=== PATIENT | female | born 1975 | race African-American/Black ===

== ENCOUNTER 2020-04-22 02:09 | Emergency (ER) | payer MEDICAID ==
[~2020-04-22] VITALS: Ht 188 cm; Wt 65.0 kg
[~2020-04-22 02:09] MED LIST: METH40TA3 PO
[2020-04-22 06:09] LABS: ALBUMIN 3.6 g/dL (3.4-5.0); ANION GAP 6 mmol/L (5-15); CALCIUM 8.7 mg/dL (8.5-10.1); CHLORIDE 109 mmol/L (98-107)
[2020-04-22 06:11] LABS: BASOPHILS % (AUTO) 1 % (0-1); EOSINOPHILS % (AUTO) 2 % (1-7); LYMPHOCYTES % (AUTO) 28 % (22-44); MEAN CORPUSCULAR HEMOGLOBIN 28.3 pg (27.0-34.8); MONOCYTES % (AUTO) 5 % (2-9); NEUTROPHILS % (AUTO) 65 % (42-75); PLATELET COUNT 337 x10^3/uL (130-400); RED BLOOD COUNT 5.07 x10^6/uL (3.82-5.3); RED CELL DISTRIBUTION WIDTH 15.4 % (9.6-15.2)
[2020-04-22 06:13] LABS: MD NO
[2020-04-22 06:14] LABS: CREATININE 0.65 mg/dL (0.55-1.02); TROPONIN I < 0.015 ng/mL (0.000-0.045)
[2020-04-22] MEDS ORDERED: ACETAMINOPHEN 325 MG TABLET PO ONE (08:00)
[2020-04-22] MEDS ORDERED: ACETAMINOPHEN 325 MG TABLET ONE (08:00)
[2020-04-22] MEDS ORDERED: KETOROLAC 30 MG/1 ML IM ONE (08:00)
[2020-04-22] MEDS ORDERED: KETOROLAC 30 MG/1 ML ONE (08:00)
--- NOTE | 2020-04-22 08:06 | NUR ---
PT TO ROOM FROM LOBBY. FIIRST CONTACT WITH PT. ASSUME CARE AT THIS TIME.
[2020-04-22 08:08] VITALS: BP 117/84
--- NOTE | 2020-04-22 08:48 | NUR ---
BUS PASS GIVEN
== END 2020-04-22 08:50 | disposition home or self-care (01) ==
LOC: ED 07:41
DX: M94.0 Chondrocostal junction syndrome [Tietze] (principal); R94.31 Abnormal electrocardiogram [ECG] [EKG]; R07.89 Other chest pain; I11.9 Hypertensive heart disease without heart failure
CPT/HCPCS: 36415; 71045; 80048; 82040; 84484; 85025; 93005; 96372; 99285; J1885